=== PATIENT | female | born 1990 | race Two or more races ===

== ENCOUNTER → 2019-08-31 | Outpatient (CLI) | payer OTHER ==
[2019-08-31 08:03] LABS: BASOPHILS # (AUTO) 0.03 x10^3/uL (0-0.1); BASOPHILS % (AUTO) 1 % (0-1); EOSINOPHILS # (AUTO) 0.35 x10^3/uL (0-0.4); EOSINOPHILS % (AUTO) 7 % (1-7); LYMPHOCYTES # (AUTO) 1.86 x10^3/uL (1-3.4); LYMPHOCYTES % (AUTO) 34 % (22-44); MD NO; MEAN CORPUSCULAR HEMOGLOBIN 30.7 pg (27.0-34.8); MEAN CORPUSCULAR HGB CONC 33.4 g/dL (32.4-35.8); MEAN CORPUSCULAR VOLUME 91.9 fL (80-100); MEAN PLATELET VOLUME 8.1 fL (7.4-10.4); MONOCYTES # (AUTO) 0.38 x10^3/uL (0.2-0.8); MONOCYTES % (AUTO) 7 % (2-9); NEUTROPHILS # (AUTO) 2.82 x10^3/uL (1.8-6.8); NEUTROPHILS % (AUTO) 52 % (42-75); PLATELET COUNT 380 x10^3/uL (130-400); RED BLOOD COUNT 4.54 x10^6/uL (3.82-5.3); RED CELL DISTRIBUTION WIDTH 13.8 % (9.6-15.2)
[2019-08-31 08:13] LABS: ALANINE AMINOTRANSFERASE 21 U/L (12-78); ALBUMIN 3.8 g/dL (3.4-5.0); ANION GAP 4 mmol/L (5-15); CALCIUM 8.3 mg/dL (8.5-10.1); CHLORIDE 109 mmol/L (98-107); CREATININE 0.69 mg/dL (0.55-1.02)
[2019-08-31 08:22] LABS: ALKALINE PHOSPHATASE 69 U/L (45-117); BILIRUBIN,TOTAL 0.7 mg/dL (0.2-1.0); CHOL/HDL RATIO 3.3; CHOLESTEROL, TOTAL 153 mg/dL (140-239); FREE T4 (FREE THYROXINE) 1.12 ng/dL (0.76-1.46); HDL CHOL % 30 % (28-40); HDL CHOLESTEROL (DIRECT) 46 mg/dL (40-60); LDL CHOLESTEROL,CALCULATED 86 mg/dL (54-169); LDL/HDL RATIO 1.9 (0.5-3.0); TOTAL PROTEIN 6.9 g/dL (6.4-8.2); TRIGLYCERIDES 107 mg/dL (50-200); VLDL CHOLESTEROL 21 mg/dL (0-25)
[2019-08-31 08:31] LABS: HEMOGLOBIN A1C 4.8 % (4.2-6.3)
== END | disposition home or self-care (01) ==
LOC: LAB 07:40
PROVIDERS: ATTEND Physician Assistant Medical
DX: Z31.49 Encounter for other procreative investigation and testing (principal)
CPT/HCPCS: 36415; 80053; 80061; 82306; 83001; 83002; 83036; 84144; 84439; 84443; 85025

== ENCOUNTER 2020-03-19 06:01 | Emergency (ER) | payer OTHER ==
[~2020-03-19] VITALS: Ht 160 cm; Wt 66.5 kg
--- NOTE | 2020-03-19 06:14 | NUR ---
PT REPORTS LOWER ABD CRAMPING AND VAGINAL BLEEDING, IS 7 WEEKS . PROVIDER AT BEDSIDE FOR EVAL.
--- NOTE | 2020-03-19 06:23 | NUR ---
REGISTRATION AT BEDSIDE.
--- NOTE | 2020-03-19 06:28 | NUR ---
PERINATAL SOCIAL WORKER AT BEDSIDE FOR LAB DRAW.
--- NOTE | 2020-03-19 06:40 | NUR ---
STRAIGHT CATH URINE SAMPLE COLLECTED.
[2020-03-19 06:44] LABS: BASOPHILS # (AUTO) 0.03 x10^3/uL (0-0.1); BASOPHILS % (AUTO) 0 % (0-1); EOSINOPHILS % (AUTO) 2 % (1-7); LYMPHOCYTES % (AUTO) 21 % (22-44); MD NO; MEAN CORPUSCULAR HEMOGLOBIN 30.8 pg (27.0-34.8); MEAN CORPUSCULAR HGB CONC 33.6 g/dL (32.4-35.8); MEAN CORPUSCULAR VOLUME 91.6 fL (80-100); MEAN PLATELET VOLUME 8.5 fL (7.4-10.4); MONOCYTES # (AUTO) 0.62 x10^3/uL (0.2-0.8); MONOCYTES % (AUTO) 6 % (2-9); NEUTROPHILS # (AUTO) 6.91 x10^3/uL (1.8-6.8); NEUTROPHILS % (AUTO) 71 % (42-75); PLATELET COUNT 302 x10^3/uL (130-400); RED BLOOD COUNT 4.23 x10^6/uL (3.82-5.3); RED CELL DISTRIBUTION WIDTH 14.9 % (9.6-15.2)
--- NOTE | 2020-03-19 06:49 | NUR ---
RECEIVED REPORT FROM SEBAS SIMON
[2020-03-19 06:51] LABS: ALBUMIN 3.4 g/dL (3.4-5.0); ANION GAP 5 mmol/L (5-15); CALCIUM 8.7 mg/dL (8.5-10.1); CHLORIDE 110 mmol/L (98-107)
[2020-03-19 06:53] LABS: MICROSCOPIC AUTO
[2020-03-19 06:56] LABS: CULTURE INDICATED? NO
[2020-03-19 07:10] LABS: CREATININE 0.69 mg/dL (0.55-1.02)
--- NOTE | 2020-03-19 07:45 | NUR ---
PT HAS HAD ULTRASOUND COMPLETED AND STATES SHE HAS CRAMPING AND VAGINAL BLEEDING WHEN SHE WIPES. REPORT TO JOHNNY SIMON
--- NOTE | 2020-03-19 07:48 | NUR ---
REPORT FROM CHRIS RN, PT RESTING IN [facility], AWAITING RECHECK BY .
[2020-03-19 07:51] VITALS: BP 118/61
--- NOTE | 2020-03-19 07:52 | NUR ---
PER BLOOD BANK PT RH POSITIVE
== END 2020-03-19 08:37 | disposition home or self-care (01) ==
LOC: ED 06:25
DX: O03.4 Incomplete spontaneous abortion without complication (principal); O26.891 Other specified pregnancy related conditions, first trimester; R10.32 Left lower quadrant pain; Z3A.01 Less than 8 weeks gestation of pregnancy
CPT/HCPCS: 36415; 76801; 80048; 81001; 82040; 84702; 85025; 86901; 99284

== ENCOUNTER 2020-03-21 11:11 | Emergency (ER) | payer OTHER ==
[~2020-03-21] VITALS: Ht 160 cm; Wt 67.4 kg
[2020-03-21 11:16] VITALS: BP 119/68
[2020-03-21] MEDS ORDERED: SILVER NITRATE STICK TP ONE (11:36)
[2020-03-21] MEDS ORDERED: LIDOCAINE 1%-EPI 1:100K, 20ML ONE (11:36)
== END 2020-03-21 14:36 | disposition home or self-care (01) ==
LOC: ED 14:17
DX: O03.9 Complete or unspecified spontaneous abortion without complication (principal)
CPT/HCPCS: 36415; 84702; 99283

== ENCOUNTER 2020-06-16 15:18 | Outpatient (CLI) | payer OTHER | END 2020-06-16 23:59 | disposition home or self-care (01) | LOC: LAB 15:18 | PROVIDERS: ATTEND Obstetrics & Gynecology | DX: O20.9 Hemorrhage in early pregnancy, unspecified (principal); Z3A.00 Weeks of gestation of pregnancy not specified | CPT/HCPCS: 36415; 84702; 86850; 86900 ==

== ENCOUNTER → 2020-06-19 | Outpatient (CLI) | payer OTHER | END | disposition home or self-care (01) | LOC: LAB 12:54 | PROVIDERS: ATTEND Obstetrics & Gynecology | DX: O20.9 Hemorrhage in early pregnancy, unspecified (principal) | CPT/HCPCS: 36415; 84702 ==